=== PATIENT | female | born 1990 | race African-American/Black ===

== ENCOUNTER → 2016-08-03 | Outpatient (CLI) | payer OTHER ==
[2016-08-03 11:37] LABS: ABSOLUTE EOSINOPHILS # (AUTO) 0.2 10^3/uL (0.0-0.6); ABSOLUTE LYMPHOCYTES (AUTO) 2.6 10^3/uL (0.5-4.7); ABSOLUTE MONOCYTES (AUTO) 0.3 10^3/uL (0.1-1.4); ABSOLUTE NEUT (AUTO) 2.2 10^3/uL (1.7-8.2); BASOPHILS % (AUTO) 0.7 % (0-2); EOSINOPHILS % (AUTO) 3.1 % (0-6); HEMOGLOBIN 12.5 g/dL (12.0-15.5); HGB HCT DIFFERENCE -0.5; LYMPHOCYTES % (AUTO) 48.7 % (13-45); MEAN CORPUSCULAR HEMOGLOBIN 27.4 pg (27.0-33.4); MEAN CORPUSCULAR HGB CONC 33.1 g/dL (32.0-36.0); MEAN CORPUSCULAR VOLUME 83 fl (80-97); MONOCYTES % (AUTO) 5.6 % (3-13); RED BLOOD COUNT 4.58 10^6/uL (3.72-5.28); RED CELL DISTRIBUTION WIDTH 13.2 % (11.5-14.0); SEGMENTED NEUTROPHILS % (AUTO) 41.9 % (42-78); WHITE BLOOD COUNT 5.3 10^3/uL (4.0-10.5)
[2016-08-03 12:03] LABS: ALANINE AMINOTRANSFERASE 20 U/L (9-52); ALBUMIN 3.8 g/dL (3.5-5.0); ALKALINE PHOSPHATASE 41 U/L (38-126); ANION GAP 14 (5-19); ASPARTATE AMINO TRANSFERASE 16 U/L (14-36); BILIRUBIN,DIRECT 0.2 mg/dL (0.0-0.4); BILIRUBIN,TOTAL 0.3 mg/dL (0.2-1.3); BLOOD UREA NITROGEN 9 mg/dL (7-20); CALCIUM 9.1 mg/dL (8.4-10.2); CARBON DIOXIDE 23 mmol/L (22-30); CHLORIDE 109 mmol/L (98-107); CHOLESTEROL 150.13 mg/dL (0-200); CREATININE RESULT 0.77 mg/dL (0.52-1.25); Direct HDL 42 mg/dL (>40); GLUCOSE 94 mg/dL (75-110); POTASSIUM 4.5 mmol/L (3.6-5.0); SODIUM 146.2 mmol/L (137-145); TOTAL PROTEIN 6.7 g/dL (6.3-8.2); TRIGLYCERIDES 66 mg/dL (<150)
[2016-08-03 12:13] LABS: DIRECT LDL 83 mg/dL (<100)
== END ==
LOC: LAB 10:25
DX: Z00.00 Encounter for general adult medical examination without abnormal findings (principal)
CPT/HCPCS: 36415; 80053; 80061; 83036; 84443; 85025

== ENCOUNTER 2016-08-05 15:53 | Emergency (ER) | payer SELFPAY ==
--- NOTE | 2016-08-05 17:13 | ER Document Report ---
ED Oral Problem - General Chief Complaint: Sore Throat Stated Complaint: THROAT PAIN Notes: Patient has been having problems with laryngitis over the last 6 months. She's been seen by her local provider and then by ENT who performed a laryngoscopic exam of the patient's larynx and upper airway and found no abnormalities. The patient was placed on antacids. She has been treated recently with Nexium and a course of steroids and her voice improved, but after a few days, the hoarse voice returned. She had a CT scan of her neck done today and it was normal. Her primary care provider at [facility] is trying to arrange for her to get into see a local tower supervisor to look further into the cause of her recurrent laryngitis over the 6 months. Patient's employment requires her to talk on the telephone almost all the time while at work. TRAVEL OUTSIDE OF THE [place] IN LAST 30 DAYS: No - Related Data Allergies/Adverse Reactions: acetaminophen [From Tylenol PM] Allergy (Severe, Verified 08/05/16 15:58) dextromethorphan HBr [From NyQuil] Allergy (Severe, Verified 08/05/16 15:58) diphenhydramine HCl [From Benadryl] Allergy (Severe, Verified 08/05/16 15:58) doxylamine [From NyQuil] Allergy (Severe, Verified 08/05/16 15:58) pseudoephedrine HCl [From NyQuil] Allergy (Severe, Verified 08/05/16 15:58) Sulfa (Sulfonamide Antibiotics) Allergy (Mild, Verified 08/05/16 15:58) Past Medical History - Social History Smoking Status: Never Smoker Family History: Reviewed & Not Pertinent, Arthritis, Hyperlipidemia, Hypertension, Malignancy Patient has suicidal ideation: No Patient has homicidal ideation: No Neurological Medical History: Reports: Hx Migraine Renal/ Medical History: Reports: Hx Ovarian Cysts GI Medical History: Reports: Hx Gastroesophageal Reflux Disease Psychiatric Medical History: Reports: Hx Anxiety, Hx Depression - Immunizations Hx Diphtheria, Pertussis, Tetanus Vaccination: Yes Review of Systems - Review of Systems Constitutional: denies: Fever Cardiovascular: denies: Chest pain Respiratory: See HPI. denies: Cough, Short of breath, Wheezing Gastrointestinal: denies: Abdominal pain, Diarrhea, Nausea, Vomiting Physical Exam - Vital signs Vitals: Temp Pulse Resp BP Pulse Ox 98.9 F 91 14 110/73 99 04/07/17 15:59 08/05/16 15:59 08/05/16 15:59 08/05/16 15:59 08/05/16 15:59 Interpretation: Normal - Notes Notes: PHYSICAL EXAMINATION: GENERAL: Well-appearing, in no acute distress. Patient has no difficulty swallowing. She speaks in a squeaky high-pitched somewhat hoarse sounding voice. I believe this sounds like pseudo-laryngitis to me. HEAD: Atraumatic, normocephalic. ENT: oropharynx clear without exudates. Moist mucous membranes. NECK: Normal range of motion, supple. Good airflow without any difficulty. LUNGS: Breath sounds clear and equal bilaterally. HEART: Regular rate and rhythm without murmurs. ABDOMEN: Soft, nontender. No guarding or rebound. BACK: No tenderness throughout entire back. EXTREMITIES: Normal range of motion without pain. NEUROLOGICAL: Normal speech, normal gait. Normal sensory, motor, and reflex exams. Awake, alert, and oriented x3. Cranial nerves normal. PSYCH: Normal mood, normal affect. Course - Re-evaluation Re-evalutation: 08/05/16 21:19 Patient felt that the course of steroids helped her and give that treatment modality one more try with another Medrol Dosepak like she already took followed by 5 mg of prednisone daily for 7 days. - Vital Signs Vital signs: Temp Pulse Resp BP Pulse Ox 98.9 F 70 20 121/75 98 08/05/16 15:59 08/05/16 17:15 08/05/16 17:15 08/05/16 17:15 08/05/16 17:15 Discharge - Discharge Clinical Impression: Laryngitis Condition: Stable Disposition: HOME, SELF-CARE Additional Instructions: Laryngitis You have laryngitis. This is an inflammation of the vocal cords which leads to inability to speak normally. Any irritation to the airway can cause laryngitis. Causes include virus infection, smoke inhalation, allergy, or even trauma due to excessive talking or shouting. Rest your voice. Any vibration of the vocal cords increases and prolongs the swelling. Humidity is helpful, especially cool mist. Avoid dust, chemical fumes, and smoke. Avoid decongestants and antihistamines -- these will make you worse. You can expect to recover completely in a few days. See the physician if new symptoms develop, such as high fever, productive cough, shortness of breath, or if you do not improve within a few days. Continue taking your antacid medications. STEROID MEDICATION: You have been given a medicine of the cortisone/steroid class. This medication is used to control inflammation or allergy. It is usually only given for a short period of time, until the acute process subsides. There are usually no side effects from short-term use of cortisone-like medications. Some persons feel an increased sense of well-being and are not sleepy at bedtime. Long-term use of cortisone medications is best avoided, unless required for a severe condition. If your condition does not remit, or relapses after the course of corticosteroid medication, you should consult your physician. FOLLOW-UP CARE: If you have been referred to a physician for follow-up care, call the physician s office for an appointment as you were instructed or within the next two days. If you experience worsening or a significant change in your symptoms, notify the physician immediately or return to the Emergency Department at any time for re-evaluation. Follow-up with a local tower supervisor as planned. Prescriptions: Methylprednisolone [Medrol Dosepack (4 mg/Tab) 21 Tab/Dosepak] 4 mg PO ASDIR PRN #21 tab.[id number] PRN Reason: Prednisone 5 mg PO DAILY #7 tablet Forms: Return to Work Referrals: [facility] [Primary Care Provider] - Follow up as needed
[2016-08-05 17:15] VITALS: BP 121/75
== END 2016-08-05 17:14 | disposition home or self-care (01) ==
LOC: ER 15:53
DX: J04.0 Acute laryngitis (principal); Z88.6 Allergy status to analgesic agent; Z88.2 Allergy status to sulfonamides
CPT/HCPCS: 99282

== ENCOUNTER → 2016-08-05 | Outpatient (CLI) | payer OTHER | LOC: RAD 10:12 | DX: R49.0 Dysphonia (principal); J37.0 Chronic laryngitis; Z72.0 Tobacco use | CPT/HCPCS: 71250 ==

== ENCOUNTER 2016-08-21 19:04 | Emergency (ER) | payer OTHER ==
--- NOTE | 2016-08-21 21:20 | ER Document Report ---
ED Psych Disorder / Suicide - General Chief Complaint: Psych Problem Stated Complaint: PANIC ATTACK Mode of Arrival: Ambulatory Information source: Patient Notes: This is a 26-year-old female who presents to the ER for concern of panic attack and suicidal ideation. History is limited in that patient is currently under treatment for significant laryngitis and is unable to speak at this time. History is obtained as she answers questions by writing on a dry-erase board. She states that over the past 6 months she has been diagnosed with a recurrent laryngitis and that she is unable to speak. The severity seems to wax and wane and sometimes she is able to have a voice and at other times she cannot. She has been evaluated and treated by ENT, has had normal laryngoscopic exam and CT of neck, and is being treated with prednisone. She has two subspecialty appointments at [place] next month. She states that she's been told that this condition may be permanent. She states that this has triggered her anxiety and depression, and that she has been having increased frequency of panic attacks, during which she feels that she cannot breathe secondary to her laryngitis. She writes that she cannot go on living this way and that she feels suicidal. She does admit to a prior suicide attempt by overdose in 2015. She states that she decided to come to the ER today for help with these suicidal thoughts and with her panic attacks. She is at times tearful during the interview. TRAVEL OUTSIDE OF THE [place] IN LAST 30 DAYS: No - Related Data Allergies/Adverse Reactions: acetaminophen [From Tylenol PM] Allergy (Severe, Verified 08/21/16 19:37) dextromethorphan HBr [From NyQuil] Allergy (Severe, Verified 08/21/16 19:37) diphenhydramine HCl [From Benadryl] Allergy (Severe, Verified 08/21/16 19:37) doxylamine [From NyQuil] Allergy (Severe, Verified 08/21/16 19:37) pseudoephedrine HCl [From NyQuil] Allergy (Severe, Verified 08/21/16 19:37) Sulfa (Sulfonamide Antibiotics) Allergy (Mild, Verified 08/21/16 19:37) erythromycin base Allergy (Verified 08/21/16 19:37) Past Medical History - General Information source: Patient, [facility] Records - Social History Smoking Status: Never Smoker Frequency of alcohol use: None Drug Abuse: None Lives with: Spouse/Significant other Family History: Reviewed & Not Pertinent, Arthritis, Hyperlipidemia, Hypertension, Malignancy Patient has suicidal ideation: Yes Patient has homicidal ideation: Yes Neurological Medical History: Reports: Hx Migraine Renal/ Medical History: Reports: Hx Ovarian Cysts. Denies: Hx Peritoneal Dialysis GI Medical History: Reports: Hx Gastroesophageal Reflux Disease Psychiatric Medical History: Reports: Hx Anxiety, Hx Depression - Immunizations Hx Diphtheria, Pertussis, Tetanus Vaccination: Yes Review of Systems - Review of Systems Constitutional: No symptoms reported. denies: Chills, Fever EENT: See HPI Cardiovascular: No symptoms reported. denies: Chest pain Respiratory: No symptoms reported Gastrointestinal: No symptoms reported Genitourinary: No symptoms reported Musculoskeletal: No symptoms reported Hematologic/Lymphatic: No symptoms reported Neurological/Psychological: See HPI Physical Exam - Vital signs Vitals: Temp Pulse Resp BP Pulse Ox 99 F 106 H 22 H 124/78 100 08/21/16 19:38 08/21/16 19:38 08/21/16 19:38 08/21/16 19:38 08/21/16 19:38 - Notes Notes: PHYSICAL EXAMINATION: GENERAL: Well-appearing, well-nourished adult female. No distress. Writing on a dry-erase board. HEAD: Atraumatic, normocephalic. EYES: Pupils equal round and reactive to light, extraocular movements intact, sclera anicteric, conjunctiva are normal. ENT: nares patent, oropharynx clear without exudates. Moist mucous membranes. NECK: Normal range of motion, supple without lymphadenopathy LUNGS: Breath sounds clear to auscultation bilaterally and equal. No wheezes rales or rhonchi. HEART: Regular rate and rhythm without murmurs ABDOMEN: Soft, nontender, normoactive bowel sounds. No guarding, no rebound. EXTREMITIES: Normal range of motion, no pitting or edema. NEUROLOGICAL: Cranial nerves grossly intact. Pt will not speak as she says she has no voice. No gross focal motor or sensory deficits appreciated PSYCH: Sad mood, flat/depressed affect, with occasional tears. SKIN: Warm, Dry, normal turgor, no rashes or lesions noted. Course - Re-evaluation Re-evalutation: 08/21/16 23:20 Pt noted to swallow and tolerate po fluids without difficulty. Normal exam of posterior pharynx. These symptoms have been waxing and waning for several months. Most concerning today is her endorsement of ongoing and active suicidal ideations and her history of overdose in the past. Pt is unable to contract for safety and I feel that she is a potential danger to herself. Will complete IVC paperwork and await mental health evaluation in the morning. - Vital Signs Vital signs: Temp Pulse Resp BP Pulse Ox 99 F 106 H 22 H 124/78 100 08/21/16 19:38 08/21/16 19:38 08/21/16 19:38 08/21/16 19:38 08/21/16 19:38 - Laboratory Result Diagrams: 08/21/16 21:30 08/21/16 21:30 Laboratory results interpreted by me: 08/21/16 21:30 Sodium 146.6 H Glucose 65 L Salicylates < 1.0 L Acetaminophen < 10 L - EKG Interpretation by Me Additional EKG results interpreted by me: 08/21/16 22:22 EKG at 2047 and menstruation normal sinus rhythm with a rate of 73. There are no ST segment elevation or depressions. Intervals are normal. Normal axis. Discharge - Discharge Clinical Impression: Suicidal ideation, Laryngitis Depression Qualifiers: Depression Type: unspecified Qualified Code(s): F32.9 - Major depressive disorder, single episode, unspecified Condition: Stable Disposition: PSYCH HOSP/UNIT Instructions: Anxiety ([facility])
[2016-08-21 21:50] LABS: ABSOLUTE BASOPHILS # (AUTO) 0.1 10^3/uL (0.0-0.2); ABSOLUTE EOSINOPHILS # (AUTO) 0.1 10^3/uL (0.0-0.6); ABSOLUTE LYMPHOCYTES (AUTO) 3.7 10^3/uL (0.5-4.7); ABSOLUTE MONOCYTES (AUTO) 0.7 10^3/uL (0.1-1.4); ABSOLUTE NEUT (AUTO) 5.5 10^3/uL (1.7-8.2); BASOPHILS % (AUTO) 1.2 % (0-2); EOSINOPHILS % (AUTO) 0.9 % (0-6); HEMATOCRIT 39.9 % (36.0-47.0); HEMOGLOBIN 13.3 g/dL (12.0-15.5); LYMPHOCYTES % (AUTO) 36.4 % (13-45); MEAN CORPUSCULAR HEMOGLOBIN 27.5 pg (27.0-33.4); MEAN CORPUSCULAR HGB CONC 33.3 g/dL (32.0-36.0); MEAN CORPUSCULAR VOLUME 83 fl (80-97); MONOCYTES % (AUTO) 7.1 % (3-13); RED BLOOD COUNT 4.82 10^6/uL (3.72-5.28); RED CELL DISTRIBUTION WIDTH 13.9 % (11.5-14.0); SEGMENTED NEUTROPHILS % (AUTO) 54.4 % (42-78); WHITE BLOOD COUNT 10.1 10^3/uL (4.0-10.5)
[2016-08-21 22:02] LABS: ALANINE AMINOTRANSFERASE 27 U/L (9-52); ALBUMIN 4.5 g/dL (3.5-5.0); ALKALINE PHOSPHATASE 41 U/L (38-126); ANION GAP 15 (5-19); ASPARTATE AMINO TRANSFERASE 25 U/L (14-36); BILIRUBIN,DIRECT 0.1 mg/dL (0.0-0.4); BILIRUBIN,TOTAL 0.6 mg/dL (0.2-1.3); BLOOD UREA NITROGEN 12 mg/dL (7-20); CALCIUM 9.4 mg/dL (8.4-10.2); CARBON DIOXIDE 25 mmol/L (22-30); CHLORIDE 107 mmol/L (98-107); CREATININE RESULT 0.82 mg/dL (0.52-1.25); GLUCOSE 65 mg/dL (75-110); SODIUM 146.6 mmol/L (137-145); TOTAL PROTEIN 7.4 g/dL (6.3-8.2)
[2016-08-21 22:03] LABS: ALCOHOL < 10 mg/dL (NONE DETECTED)
[2016-08-21] MEDS ORDERED: MAG HYDROX/AL HYDROX/SIMETH SUSP 30 ML UDCUP PO ONE (22:43)
[2016-08-21] MEDS ORDERED: METOCLOPRAMIDE HCL ORAL SOLN 10 MG/10 ML UDCUP PO ONE (22:43)
[2016-08-21] MEDS ORDERED: LIDOCAINE 2% VISCOUS SOLN 20 ML UDCUP PO ONE (22:43)
[2016-08-21] MEDS ORDERED: FAMOTIDINE 20 MG TABLET PO ONE (22:57)
[2016-08-22 00:38] LABS: URINE BARBITURATES SCREEN NEGATIVE; URINE METHADONE SCREEN NEGATIVE; URINE OPIATES LOW NEGATIVE; URINE PHENCYCLIDINE SCREEN NEGATIVE
[2016-08-22 00:41] LABS: APPEARANCE,URINE SLIGHTLY-CLOUDY; BILIRUBIN,URINE NEGATIVE (NEGATIVE); GLUCOSE, URINE NEGATIVE (NEGATIVE); KETONES,URINE NEGATIVE (NEGATIVE); LEUKOCYTE ESTERASE,URINE TRACE (NEGATIVE); NITRITE,URINE NEGATIVE (NEGATIVE); PROTEIN,URINE NEGATIVE (NEGATIVE); URINE SPECIFIC GRAVITY 1.015; UROBILINOGEN,URINE NEGATIVE mg/dL (<2.0)
[2016-08-22] MEDS ORDERED: TRAZODONE HCL 50 MG TABLET PO SCH (02:00)
[2016-08-22] MEDS ORDERED: TRAZODONE HCL 50 MG TABLET PO ONE (02:00)
--- NOTE | 2016-08-22 10:39 | EKG REPORT ---
SEVERITY:- NORMAL ECG - SINUS RHYTHM : Confirmed by: Ann Elmore 22-Aug-2016 10:38:38
[2016-08-22] MEDS ORDERED: FAMOTIDINE 20 MG TABLET PO ONE (10:59)
--- NOTE | 2016-08-22 13:29 | ER Document Report ---
ED Psych Disorder / Suicide - General Chief Complaint: Psych Problem Stated Complaint: PANIC ATTACK Mode of Arrival: Ambulatory Information source: Patient, Friend - boyfriend Cannot obtain history due to: Other - pt reportedly has chronic laryngitis and is unable to verbally communicate TRAVEL OUTSIDE OF THE [place] IN LAST 30 DAYS: No - HPI Patient complains to provider of: Bizarre behavior, Other - anxiety/panic attack Onset: Just prior to arrival Onset was: Sudden Suicide Risk Factors: Depressed, Other - Stress over reported medical condition Situational problems related to: Other - Patient reports she has been diagnosed with chronic and severe laryngitis preventing her from verbally communicating Normal mood: Yes Associated symptoms: Normal affect, Normal mood, Anxious, Depressed - Patient reports she is depressed of her chronic medical condition, Irritable - Patient reports she gets frustrated very easily. Similar symptoms previously: Yes - patient reports she attempted suicide one year ago. Recently seen / treated by doctor: Yes - patient reports she is followed by [facility] and wants to go ther Notes: Patient is a 26-year-old female who presented last night do to which she reported as a panic attack. Patient does not verbally communicate other than making grunting sounds and hand gestures. Patient actually communicates using a dry erase board and worker. Patient states she is unable to verbally communicate do to chronic laryngitis 6 months. Patient reportedly has specialists following her for this condition. Patient today states nothing specific happened to upset her last night just that she is frustrated over her current situation. She states she acted out and began breaking items in the home. Patient states she prompted her boyfriend to just break up with her via text message, and is now frustrated because she does not have access to her phone to know what he wrote back. Patient denies feeling suicidal, but reports she is upset and feels hopeless about her condition. Patient states her doctors tell her they will wait until [place] for further testing. Patient reports she is frustrated that she is unable to verbalize her opinions and needs. Patient provides verbal consent to contact her boyfriend. [facility]: Schedule patient for medication evaluation per her request for 1 week from today at 0830. KarenNaga : states he is not concerned for her safety in re : to harming self. He states there was an argument because she was frustrated over losing her voice. He states they do live together, but does not have a vehicle to pick her up. He states he will attempt to get a ride to pick her up. Boyfriend reports the patient does take her medications as prescribed. Patient is alert and oriented 4. Mood is irritable with congruent affect. Patient denies suicidal/homicidal ideations, intent, plan, means. Patient denies A/VH; delusions not noted. Thought processes were goal oriented towards discharging to follow-up with her own provider. Patient did not verbally communicate to assess for speech. Intellectual abilities were estimated within average range. Attention and focus were fair. Insight, judgment, impulse control were poor. Unspecified anxiety disorder per history Unspecified depressive disorder per history Patient is psychiatrically cleared and recommended for rescind IVC to discharge to her boyfriend. Patient reports she would like to follow-up with her psychiatric provider at [facility]. An appointment has been scheduled for her for August 29 at 0830. Patient no longer meets criteria for involuntary commitment as she denies suicidal and/or homicidal ideations. Per report it appears her chronic laryngitis is being followed by specialists at [place]. It is unclear if this information has been verified. I consulted with Dr. Faulkner in regards to the care and management of this patient. - Related Data Allergies/Adverse Reactions: acetaminophen [From Tylenol PM] Allergy (Severe, Verified 08/21/16 19:37) dextromethorphan HBr [From NyQuil] Allergy (Severe, Verified 08/21/16 19:37) diphenhydramine HCl [From Benadryl] Allergy (Severe, Verified 08/21/16 19:37) doxylamine [From NyQuil] Allergy (Severe, Verified 08/21/16 19:37) pseudoephedrine HCl [From NyQuil] Allergy (Severe, Verified 08/21/16 19:37) Sulfa (Sulfonamide Antibiotics) Allergy (Mild, Verified 08/21/16 19:37) erythromycin base Allergy (Verified 08/21/16 19:37) Home Medications: Current Home Medications Omeprazole [Prilosec] 40 mg PO DAILY 08/22/16 [History] Trazodone HCl [Trazodone HCl] 50 mg PO QHS 08/22/16 [History] Vilazodone Hydrochloride [Viibryd] 20 mg PO DAILY 08/22/16 [History] Past Medical History - General Information source: Patient, Friend, [facility] Records - Social History Smoking Status: Unknown if Ever Smoked Chew tobacco use (# tins/day): No Frequency of alcohol use: None Drug Abuse: None Lives with: Spouse/Significant other Family History: Reviewed & Not Pertinent, Arthritis, Hyperlipidemia, Hypertension, Malignancy Patient has suicidal ideation: Yes Patient has homicidal ideation: Yes Neurological Medical History: Reports: Hx Migraine Renal/ Medical History: Reports: Hx Ovarian Cysts. Denies: Hx Peritoneal Dialysis GI Medical History: Reports: Hx Gastroesophageal Reflux Disease Psychiatric Medical History: Reports: Hx Anxiety, Hx Depression - Immunizations Hx Diphtheria, Pertussis, Tetanus Vaccination: Yes Physical Exam - Vital signs Vitals: Temp Pulse Resp BP Pulse Ox 99 F 106 H 22 H 124/78 100 08/21/16 19:38 08/21/16 19:38 08/21/16 19:38 08/21/16 19:38 08/21/16 19:38 Course - Vital Signs Vital signs: Temp Pulse Resp BP Pulse Ox 99 F 106 H 22 H 124/78 100 08/21/16 19:38 08/21/16 19:38 08/21/16 19:38 08/21/16 19:38 08/21/16 19:38 - Laboratory Result Diagrams: 08/21/16 21:30 08/21/16 21:30 Laboratory results interpreted by me: 08/21/16 08/21/16 21:30 23:35 Sodium 146.6 H Glucose 65 L Ur Leukocyte Esterase TRACE H Salicylates < 1.0 L Acetaminophen < 10 L Discharge - Discharge Clinical Impression: Suicidal ideation, Laryngitis Depression Qualifiers: Depression Type: unspecified Qualified Code(s): F32.9 - Major depressive disorder, single episode, unspecified Condition: Stable Disposition: HOME, SELF-CARE Instructions: Anxiety ([facility]) Additional Instructions: Depression Your evaluation reveals that you have mental depression. While symptoms may be vague, they often include disturbance of sleep, fatigue, loss of appetite , and general loss of interest in life. While depression may be a side effect of drugs, or a reaction to a major change in your life, many cases have no known cause. If depression is acute, and related to a major loss in your life, you can expect it to clear completely with time. If you have been depressed a long time , are prone to repeated bouts of depression or low mood, or have been thinking of suicide, get help. Depression can be treated with anti-depressant medication and counselling. Long-term depression will often take a few weeks to clear, even with appropriate medication. Follow-up care is important. Contact your physician, the hospital emergency center, crisis line, or your counsellor if you are losing control or having self-destructive thoughts. Panic Attack The cause of panic attacks is unknown. Symptoms can include chest pain, shortness of breath, palpitations, sweats, and a sense of smothering or impending doom. In time, the panic attacks can lead to generalized anxiety and phobias. Because the symptoms can mimic heart attack, pulmonary embolism, and other serious diseases, the physician has evaluated you for these conditions. There is no evidence of a serious problem. An acute panic attack usually goes away by itself without treatment. A severe attack can be treated with medicine to calm you. Long-term, antidepressant medicines may help prevent attacks. Counselling can also be very beneficial in dealing with panic attacks. Panic attacks are less likely if you are getting regular exercise, proper diet, and plenty of sleep. It's normal for panic attacks to cause many frightening symptoms. However, you should call or return if your symptoms change significantly or if you are worsening. Anxiety The physician feels that some of your health problems are being caused by anxiety. Anxiety affects your health in many ways. Anxiety alone can cause palpitations, sweats, chest pains, abdominal pains, shortness of breath, and headaches. It contributes to ulcer disease, high blood pressure, irritable bowel syndrome, and has been shown to cause flare-ups of many other diseases. Anxiety is not a simple disorder to treat. If the anxiety is due to recent life stresses, you may simply need time to "work through" the changes. If the anxiety is due to an underlying unhappiness with yourself or due to psychiatric disturbance, professional help will be needed. Your physician can refer you for further help if needed. Anti-anxiety medication is occasionally given if the stress is acute or if you are having trouble sleeping. Chronic or frequent use of these medications is not a good idea because the body becomes reliant on it, preventing you from dealing with life's normal stresses. He were recommended to follow up with her psychiatric provider at [facility]. An appointment has been scheduled for you for a medication evaluation August 29 at 0830. You have also been provided a list of resources to follow up within the community should she choose to do so, to include mobile crisis. Mobile crisis may assist you should you experience a panic attack again. They are available to you 24 hours a day 7 days a week via telephone and in person if they deem necessary. Please return to the ER if her symptoms worsen.
[2016-08-22 13:51] VITALS: BP 117/65
== END 2016-08-22 13:51 | disposition home or self-care (01) ==
LOC: ER 19:04
DX: R45.851 Suicidal ideations (principal); J37.0 Chronic laryngitis; F32.9 Major depressive disorder, single episode, unspecified; F41.0 Panic disorder [episodic paroxysmal anxiety]; F41.9 Anxiety disorder, unspecified
CPT/HCPCS: 93005; 99284; 36415; 80307 ×4; 85025; 80053; 81001; 93010; J3490

== ENCOUNTER 2016-08-23 17:17 | Emergency (ER) | payer OTHER ==
[2016-08-23] MEDS ORDERED: NORMAL SALINE 1000 ML 1,000 ML IV ONE (19:20)
--- NOTE | 2016-08-23 19:23 | ER Document Report ---
ED General - General Chief Complaint: Passed Out Prior to Arrival Stated Complaint: SYNCOPE EPISODE Mode of Arrival: Wheelchair Information source: Patient Notes: 26-year-old female who is mute presents with complaints of dehydration. Patient notes she's been working outside there is hot she felt like she passed out for a few minutes. Patient denies any fevers or chills denies any nausea or vomiting TRAVEL OUTSIDE OF THE [place] IN LAST 30 DAYS: No - HPI Onset: Just prior to arrival Onset/Duration: Sudden Quality of pain: Achy Severity: Mild Pain Level: 1 Associated symptoms: Weakness Exacerbated by: Denies Relieved by: Denies Similar symptoms previously: No Recently seen / treated by doctor: Yes - Related Data Allergies/Adverse Reactions: acetaminophen [From Tylenol PM] Allergy (Severe, Verified 08/23/16 19:06) dextromethorphan HBr [From NyQuil] Allergy (Severe, Verified 08/23/16 19:06) diphenhydramine HCl [From Benadryl] Allergy (Severe, Verified 08/23/16 19:06) doxylamine [From NyQuil] Allergy (Severe, Verified 08/23/16 19:06) pseudoephedrine HCl [From NyQuil] Allergy (Severe, Verified 08/23/16 19:06) Sulfa (Sulfonamide Antibiotics) Allergy (Mild, Verified 08/23/16 19:06) erythromycin base Allergy (Verified 08/23/16 19:06) Past Medical History - Social History Smoking Status: Never Smoker Cigarette use (# per day): No Chew tobacco use (# tins/day): No Smoking Education Provided: No Family History: Reviewed & Not Pertinent, Arthritis, Hyperlipidemia, Hypertension, Malignancy Patient has suicidal ideation: No Patient has homicidal ideation: No Neurological Medical History: Reports: Hx Migraine Renal/ Medical History: Reports: Hx Ovarian Cysts. Denies: Hx Peritoneal Dialysis GI Medical History: Reports: Hx Gastroesophageal Reflux Disease Psychiatric Medical History: Reports: Hx Anxiety, Hx Depression - Immunizations Hx Diphtheria, Pertussis, Tetanus Vaccination: Yes Review of Systems - Review of Systems Notes: REVIEW OF SYSTEMS: CONSTITUTIONAL : Denies fever, chills, or sweats. Denies recent illness. EENT: Admits to dry mouth CARDIOVASCULAR: Denies chest pain. Denies palpitations or racing or irregular heart beat. Denies ankle edema. RESPIRATORY: Denies cough, cold, or chest congestion. Denies shortness of breath, difficulty breathing, or wheezing. GASTROINTESTINAL: Denies abdominal pain or distention. Denies nausea, vomiting , or diarrhea. Denies blood in vomitus, stools, or per rectum. Denies black, tarry stools. Denies constipation. GENITOURINARY: Denies difficulty urinating, painful urination, burning, frequency, blood in urine, or discharge. FEMALE GENITOURINARY: Denies vaginal bleeding, heavy or abnormal periods, irregular periods. Denies vaginal discharge or odor. MUSCULOSKELETAL: Denies back or neck pain or stiffness. Denies joint pain or swelling. SKIN: Denies rash, lesions or sores. HEMATOLOGIC : Denies easy bruising or bleeding. LYMPHATIC: Denies swollen, enlarged glands. NEUROLOGICAL: Admits weakness PSYCHIATRIC: Denies anxiety or stress. Denies depression, suicidal ideation, or homicidal ideation. ALL OTHER SYSTEMS REVIEWED AND NEGATIVE. Dictation was performed using [employer] voice recognition software PHYSICAL EXAMINATION: GENERAL: Well-appearing, well-nourished and in no acute distress. HEAD: Atraumatic, normocephalic. EYES: Pupils equal round and reactive to light, extraocular movements intact, conjunctiva are normal. ENT: Tongue appears dry moist mucous membranes otherwise NECK: Normal range of motion, supple without lymphadenopathy LUNGS: Breath sounds clear to auscultation bilaterally and equal. No wheezes rales or rhonchi. HEART: Regular rate and rhythm without murmurs ABDOMEN: Soft, nontender, nondistended abdomen. No guarding, no rebound. No masses appreciated. Female : deferred Musculoskeletal: Normal range of motion, no pitting or edema. No cyanosis. NEUROLOGICAL: Baseline mentation PSYCH: Normal mood, normal affect. SKIN: Warm, Dry, normal turgor, no rashes or lesions noted. Physical Exam - Vital signs Vitals: Temp Pulse Resp BP Pulse Ox 98.6 F 91 18 108/77 99 08/23/16 17:28 08/23/16 17:28 08/23/16 17:28 08/23/16 17:28 08/23/16 17:28 Course - Re-evaluation Re-evalutation: 08/23/16 19:23 Patient overall looks well and be mildly dehydrated otherwise is in no distress. Patient is noted to have panic attacks and anxiety issues. 04/25/17 21:00 Lab work notes mild CPK elevation, patient notes significant improvement with fluids. I will discharge home at this time given that patient feels well there is no other life-threatening issues After performing a Medical Screening Examination, I estimate there is LOW risk for INTRACRANIAL HEMORRHAGE, ISCHEMIC CVA, MALIGNANT DYSRHYTHMIA, ACUTE CORONARY SYNDROME, MENINGITIS, PULMONARY EMBOLISM, or SEPSIS thus I consider the discharge disposition reasonable. I have reevaluated this patient multiple times and no significant life threatening changes are noted. The patient and I have discussed the diagnosis and risks, and we agree with discharging home with close follow-up with the understanding that symptoms and presentations can change. We also discussed returning to the Emergency Department immediately if new or worsening symptoms occur. We have discussed the symptoms which are most concerning (e.g., changing or worsening pain, weakness, vomiting, fever) that necessitate immediate return. - Vital Signs Vital signs: Temp Pulse Resp BP Pulse Ox 99.1 F 91 16 115/72 99 08/23/16 20:57 08/23/16 20:57 08/23/16 20:57 08/23/16 20:57 08/23/16 20:57 - Laboratory Result Diagrams: 08/23/16 19:50 08/23/16 19:50 Laboratory results interpreted by me: 08/23/16 08/23/16 19:50 19:50 Lymphocytes % 45.2 H Sodium 146.3 H Creatine Kinase 148 H Total Protein 8.6 H Discharge - Discharge Clinical Impression: Dehydration Syncope Qualifiers: Syncope type: unspecified Qualified Code(s): R55 - Syncope and collapse Condition: Stable Disposition: HOME, SELF-CARE Additional Instructions: Syncopal Episode Syncope (fainting or near-fainting) can occur from many different health problems. Or it can be a simple fainting spell requiring no treatment. It is safe for you to go home, but further evaluation will likely be necessary. Your work-up may include tests for internal bleeding, heart disease, medication problems, or near-strokes. Tests are not always required, however, depending on the nature of your problem. The warning signs of an impending faint include: dizziness, lightheadedness , nausea, hot flashes, tingling, and weakness. If this happens, lay down and put your feet up, then wait until all of these symptoms have passed before standing up again. If these episodes become recurrent, or if you develop chest pain, heart palpitations, mental confusion, blurred vision, or headache, then you should call the physician, or go to the emergency room. Follow up with your physician tomorrow for further care or return to the ED IMMEDIATELY if symptoms worsen or new concerns occur. If you cannot afford to follow up with your primary care physician a list of low cost clinics have been provided at the end of your discharge papers as well.
[2016-08-23 20:02] LABS: ABSOLUTE EOSINOPHILS # (AUTO) 0.1 10^3/uL (0.0-0.6); ABSOLUTE MONOCYTES (AUTO) 0.4 10^3/uL (0.1-1.4); ABSOLUTE NEUT (AUTO) 3.1 10^3/uL (1.7-8.2); BASOPHILS % (AUTO) 0.6 % (0-2); EOSINOPHILS % (AUTO) 1.7 % (0-6); HEMATOCRIT 42.2 % (36.0-47.0); HEMOGLOBIN 14.1 g/dL (12.0-15.5); HGB HCT DIFFERENCE 0.1; LYMPHOCYTES % (AUTO) 45.2 % (13-45); MEAN CORPUSCULAR HEMOGLOBIN 27.8 pg (27.0-33.4); MEAN CORPUSCULAR HGB CONC 33.4 g/dL (32.0-36.0); MEAN CORPUSCULAR VOLUME 83 fl (80-97); MONOCYTES % (AUTO) 5.8 % (3-13); RED BLOOD COUNT 5.08 10^6/uL (3.72-5.28); SEGMENTED NEUTROPHILS % (AUTO) 46.7 % (42-78); WHITE BLOOD COUNT 6.7 10^3/uL (4.0-10.5)
[2016-08-23 20:17] LABS: ALANINE AMINOTRANSFERASE 23 U/L (9-52); ALBUMIN 4.8 g/dL (3.5-5.0); ALKALINE PHOSPHATASE 45 U/L (38-126); ANION GAP 14 (5-19); ASPARTATE AMINO TRANSFERASE 29 U/L (14-36); BILIRUBIN,DIRECT 0.3 mg/dL (0.0-0.4); BILIRUBIN,TOTAL 0.9 mg/dL (0.2-1.3); BLOOD UREA NITROGEN 11 mg/dL (7-20); CALCIUM 9.5 mg/dL (8.4-10.2); CARBON DIOXIDE 26 mmol/L (22-30); CHLORIDE 106 mmol/L (98-107); CREATINE KINASE 148 U/L (30-135); CREATININE RESULT 0.78 mg/dL (0.52-1.25); GLUCOSE 77 mg/dL (75-110); LIPASE 47.7 U/L (23-300); POTASSIUM 4.5 mmol/L (3.6-5.0); SODIUM 146.3 mmol/L (137-145); TOTAL PROTEIN 8.6 g/dL (6.3-8.2)
[2016-08-23 20:58] VITALS: BP 115/72
== END 2016-08-23 21:00 | disposition home or self-care (01) ==
LOC: ER 17:17
DX: E86.0 Dehydration (principal); R55 Syncope and collapse; R53.1 Weakness; F41.0 Panic disorder [episodic paroxysmal anxiety]; F41.9 Anxiety disorder, unspecified; Z88.6 Allergy status to analgesic agent; Z88.2 Allergy status to sulfonamides; Z88.1 Allergy status to other antibiotic agents; Z88.8 Allergy status to other drugs, medicaments and biological substances
CPT/HCPCS: 99284; 36415; 82550; 83690; 85025; 80053; J7030

== ENCOUNTER 2017-06-23 18:58 | Emergency (ER) | payer OTHER ==
--- NOTE | 2017-06-23 19:34 | ER Document Report ---
HPI - HPI Patient complains to provider of: left labia sore Onset: Other - 2 days Quality of pain: Burning Pain Level: 3 Context: 27 yo female with left labia tender sore. Denies risk of std and no hx hsv. no pelvic or abd pain. No fever. Associated Symptoms: None Exacerbated by: Walking Relieved by: Denies - ROS ROS below otherwise negative: Yes Systems Reviewed and Negative: Yes All other systems reviewed and negative - REPRODUCTIVE Reproductive: DENIES: : Past Medical History - General Information source: Patient - Social History Smoking Status: Never Smoker Frequency of alcohol use: None Drug Abuse: None Lives with: Family Family History: Reviewed & Not Pertinent, Arthritis, Hyperlipidemia, Hypertension, Malignancy Neurological Medical History: Reports: Hx Migraine Renal/ Medical History: Reports: Hx Ovarian Cysts. Denies: Hx Peritoneal Dialysis GI Medical History: Reports: Hx Gastroesophageal Reflux Disease Psychiatric Medical History: Reports: Hx Anxiety, Hx Depression - Immunizations Hx Diphtheria, Pertussis, Tetanus Vaccination: Yes Vertical Provider Document - CONSTITUTIONAL Agree With Documented VS: Yes Exam Limitations: No Limitations General Appearance: No Apparent Distress - INFECTION CONTROL TRAVEL OUTSIDE OF THE [place] IN LAST 30 DAYS: No - GI/ABDOMEN Gastrointestinal: Abdomen Soft, Abdomen Non-Tender - REPRODUCTIVE Notes: left inferior introitus with shallow irregulat 8mm ulcer. No pelivic lymph nodes. Discharge - Discharge Clinical Impression: Painful introitus ulceration Condition: Good Disposition: HOME, SELF-CARE Instructions: Antibiotic Ointment Protection ([facility]), Ulcer ([facility]) Additional Instructions: Call me at [phone] on June 28 for your viral culture results after 7 am Sitz bath Topical lidocaine to numb the area Bacitracin Return to the emergency room if worse Referrals: RHONDA STONER MD [Primary Care Provider] - Follow up as needed
[2017-06-23 19:58] VITALS: BP 108/70
[2017-06-23] MEDS ORDERED: LIDOCAINE 4%/TETRACAINE 0.5%/EPI 0.18% 5 ML TOPICAL SOLN TOP ONE (20:42)
== END 2017-06-23 21:07 | disposition home or self-care (01) ==
LOC: ER 18:58
DX: N76.5 Ulceration of vagina (principal)
CPT/HCPCS: 99282; 87250; J3490

== ENCOUNTER 2018-03-13 23:57 | Emergency (ER) | payer SELFPAY ==
[2018-03-14] MEDS ORDERED: KETOROLAC TROMETHAMINE 60 MG/2 ML SDV IM ONE (00:43)
--- NOTE | 2018-03-14 00:48 | ER Document Report ---
ED General - General Chief Complaint: Headache Stated Complaint: HEADACHE Time Seen by Provider: 03/14/18 00:29 TRAVEL OUTSIDE OF THE [place] IN LAST 30 DAYS: No - HPI Patient complains to provider of: Severe migraine Notes: 28-year-old female history of migraines presents to the emergency department for severe headache did not respond to her Imitrex injection. Per patient when she has migraines Imitrex typically resolve symptoms within a couple of minutes. Her normal presentation is right-sided behind her eye with lacrimation , but she endorses this headache presents as left-sided, temporal that radiates down to her jaw. She endorses photophobia, disorientation, blurred vision, nausea, hiccups. Of note patient's neurologist is Dr. Malone at [facility] and she was recently prescribed Keppra and cyclobenzaprine. - Related Data Allergies/Adverse Reactions: acetaminophen [From Tylenol PM] Allergy (Severe, Verified 06/23/17 19:06) dextromethorphan HBr [From NyQuil] Allergy (Severe, Verified 06/23/17 19:06) diphenhydramine HCl [From Benadryl] Allergy (Severe, Verified 06/23/17 19:06) doxylamine [From NyQuil] Allergy (Severe, Verified 06/23/17 19:06) pseudoephedrine HCl [From NyQuil] Allergy (Severe, Verified 06/23/17 19:06) Sulfa (Sulfonamide Antibiotics) Allergy (Mild, Verified 06/23/17 19:06) erythromycin base Allergy (Verified 06/23/17 19:06) Past Medical History - Social History Smoking Status: Current Every Day Smoker Cigarette use (# per day): Yes - 3 Family History: Reviewed & Not Pertinent, Arthritis, Hyperlipidemia, Hypertension, Malignancy Neurological Medical History: Reports: Hx Migraine Renal/ Medical History: Reports: Hx Ovarian Cysts. Denies: Hx Peritoneal Dialysis GI Medical History: Reports: Hx Gastroesophageal Reflux Disease Psychiatric Medical History: Reports: Hx Anxiety, Hx Depression - Immunizations Hx Diphtheria, Pertussis, Tetanus Vaccination: Yes Review of Systems - Review of Systems Constitutional: See HPI EENT: See HPI Cardiovascular: No symptoms reported Respiratory: No symptoms reported Gastrointestinal: No symptoms reported Genitourinary: No symptoms reported Female Genitourinary: No symptoms reported Musculoskeletal: No symptoms reported Skin: No symptoms reported Hematologic/Lymphatic: No symptoms reported Neurological/Psychological: See HPI Physical Exam - Vital signs Vitals: Temp Pulse Resp BP Pulse Ox 98.5 F 73 16 112/78 100 03/14/18 00:25 03/14/18 00:25 03/14/18 00:25 03/14/18 00:25 03/14/18 00:25 Interpretation: Normal - General General appearance: Appears well, Alert - HEENT Head: Normocephalic, Atraumatic Eyes: Normal Pupils: PERRL - Respiratory Respiratory status: No respiratory distress Chest status: Nontender Breath sounds: Normal Chest palpation: Normal - Cardiovascular Rhythm: Regular Heart sounds: Normal auscultation Murmur: No - Abdominal Inspection: Normal Distension: No distension Bowel sounds: Normal Tenderness: Nontender Organomegaly: No organomegaly - Back Back: Normal, Nontender - Extremities General upper extremity: Normal inspection, Nontender, Normal color, Normal ROM , Normal temperature General lower extremity: Normal inspection, Nontender, Normal color, Normal ROM , Normal temperature, Normal weight bearing. No: Rachel's sign - Neurological Neuro grossly intact: Yes Cognition: Normal Orientation: AAOx4 Dana Coma Scale Eye Opening: Spontaneous Kenny Coma Scale Verbal: Oriented Kenny Coma Scale Motor: Obeys Commands Dana Coma Scale Total: 15 Speech: Normal Motor strength normal: LUE, RUE, LLE, RLE Notes: No focal deficits on neuro exam. - Psychological Associated symptoms: Normal affect, Normal mood - Skin Skin Temperature: Warm Skin Moisture: Dry Skin Color: Normal Course - Re-evaluation Re-evalutation: 03/14/18 01:16 Patient received 30 mg Toradol IM. 30 minutes later patient reports feeling much better and symptoms have aborted. Patient states that she would like to go home. - Vital Signs Vital signs: Temp Pulse Resp BP Pulse Ox 98.5 F 73 16 112/78 100 03/14/18 00:25 03/14/18 00:25 03/14/18 00:25 03/14/18 00:25 03/14/18 00:25 Discharge - Discharge Clinical Impression: Migraine Qualifiers: Migraine type: without aura Status migrainosus presence: without status migrainosus Intractability: intractable Qualified Code(s): G43.019 - Migraine without aura, intractable, without status migrainosus Instructions: Migraine Headache ([facility]) Referrals: RHONDA STONER MD [HONORARY] - Follow up as needed
[2018-03-14 01:33] VITALS: BP 111/83
== END 2018-03-14 01:32 | disposition home or self-care (01) ==
LOC: ER 23:57
DX: G43.019 Migraine without aura, intractable, without status migrainosus (principal); H53.149 Visual discomfort, unspecified; R41.0 Disorientation, unspecified; H53.8 Other visual disturbances; R11.0 Nausea; R06.6 Hiccough; Z88.6 Allergy status to analgesic agent; Z88.8 Allergy status to other drugs, medicaments and biological substances; Z88.2 Allergy status to sulfonamides; Z88.1 Allergy status to other antibiotic agents; F17.210 Nicotine dependence, cigarettes, uncomplicated
CPT/HCPCS: 99284; 96372; J1885

== ENCOUNTER → 2018-03-21 | Outpatient (CLI) | payer OTHER ==
[2018-03-21 13:10] LABS: CHOLESTEROL 162.94 mg/dL (0-200); DIRECT LDL 122 mg/dL (<100); TRIGLYCERIDES 112 mg/dL (<150)
== END ==
LOC: CCC 10:19
DX: G43.909 Migraine, unspecified, not intractable, without status migrainosus (principal); Z79.899 Other long term (current) drug therapy
CPT/HCPCS: 36415; 80061; 80177; 84443

== ENCOUNTER → 2018-03-26 | Outpatient (CLI) | payer OTHER ==
[2018-03-26 13:29] LABS: ALANINE AMINOTRANSFERASE 18 U/L (9-52); ALBUMIN 5.4 g/dL (3.5-5.0); ALKALINE PHOSPHATASE 57 U/L (38-126); ANION GAP 19 (5-19); ASPARTATE AMINO TRANSFERASE 29 U/L (14-36); BILIRUBIN,DIRECT 0.2 mg/dL (0.0-0.4); BILIRUBIN,TOTAL 0.7 mg/dL (0.2-1.3); BLOOD UREA NITROGEN 12 mg/dL (7-20); CALCIUM 10.1 mg/dL (8.4-10.2); CARBON DIOXIDE 23 mmol/L (22-30); CHLORIDE 102 mmol/L (98-107); GLUCOSE 109 mg/dL (75-110); POTASSIUM 4.7 mmol/L (3.6-5.0); SODIUM 144.2 mmol/L (137-145); TOTAL PROTEIN 9.3 g/dL (6.3-8.2)
== END ==
LOC: CCC 11:53
DX: G43.909 Migraine, unspecified, not intractable, without status migrainosus (principal); Z79.899 Other long term (current) drug therapy
CPT/HCPCS: 36415; 80053

== ENCOUNTER → 2018-08-07 | Outpatient (CLI) | payer OTHER ==
[2018-08-07 13:39] LABS: HEMATOCRIT 43.1 % (36.0-47.0); HEMOGLOBIN 14.3 g/dL (12.0-15.5); MEAN CORPUSCULAR HEMOGLOBIN 27.3 pg (27.0-33.4); MEAN CORPUSCULAR HGB CONC 33.2 g/dL (32.0-36.0); MEAN CORPUSCULAR VOLUME 82 fl (80-97); PLATELET COUNT 277 10^3/uL (150-450); RED BLOOD COUNT 5.24 10^6/uL (3.72-5.28); WHITE BLOOD COUNT 4.9 10^3/uL (4.0-10.5)
[2018-08-07 13:51] LABS: CHOLESTEROL 173.86 mg/dL (0-200); TRIGLYCERIDES 98 mg/dL (<150)
[2018-08-07 14:02] LABS: DIRECT LDL 115 mg/dL (<100)
[2018-08-07 14:06] LABS: ABSOLUTE LYMPHOCYTES# (MANUAL) 3.5 10^3/uL (0.5-4.7); ABSOLUTE MONOCYTES # (MANUAL) 0.2 10^3/uL (0.1-1.4); BASOPHILS % (MANUAL) 0 % (0-2); EOSINOPHILS % (MANUAL) 3 % (0-6); MONOCYTES % (MANUAL) 4 % (3-13); SEGMENTED NEUTROPHILS % (MAN) 21 % (42-78); TOTAL CELLS COUNTED 100
[2018-08-07 14:07] LABS: LYMPHOCYTES % (MANUAL) 71 % (13-45); PLATELET COMMENT ADEQUATE; RBC MORPHOLOGY COMMENT NORMO-CYTIC/CHROMIC
[2018-08-08 10:05] LABS: PATH REVIEW PATHOLOGIST REVIEWED
== END ==
LOC: OD 12:33
PROVIDERS: ATTEND Nurse Practitioner
DX: F33.1 Major depressive disorder, recurrent, moderate (principal)
CPT/HCPCS: 36415; 80061; 83036; 84146; 84443; 85025

== ENCOUNTER → 2019-10-11 | Outpatient (CLI) | payer OTHER, BC ==
[2019-10-12 10:41] LABS: ABSOLUTE EOSINOPHILS # (AUTO) 0.1 10^3/uL (0.0-0.6); ABSOLUTE LYMPHOCYTES (AUTO) 2.3 10^3/uL (0.5-4.7); ABSOLUTE MONOCYTES (AUTO) 0.2 10^3/uL (0.1-1.4); ABSOLUTE NEUT (AUTO) 1.8 10^3/uL (1.7-8.2); BASOPHILS % (AUTO) 0.7 % (0-2); EOSINOPHILS % (AUTO) 2.6 % (0-6); HEMATOCRIT 42.9 % (36.0-47.0); HEMOGLOBIN 14.1 g/dL (12.0-15.5); LYMPHOCYTES % (AUTO) 51.6 % (13-45); MEAN CORPUSCULAR HEMOGLOBIN 27.6 pg (27.0-33.4); MEAN CORPUSCULAR HGB CONC 32.9 g/dL (32.0-36.0); MEAN CORPUSCULAR VOLUME 84 fl (80-97); MONOCYTES % (AUTO) 4.2 % (3-13); PLATELET COUNT 273 10^3/uL (150-450); RED BLOOD COUNT 5.12 10^6/uL (3.72-5.28); RED CELL DISTRIBUTION WIDTH 13.1 % (11.5-14.0); SEGMENTED NEUTROPHILS % (AUTO) 40.9 % (42-78); TOTAL CELLS COUNTED % (AUTO) 100 %; WHITE BLOOD COUNT 4.4 10^3/uL (4.0-10.5)
[2019-10-12 10:58] LABS: ALBUMIN 4.5 g/dL (3.5-5.0); ALKALINE PHOSPHATASE 47 U/L (38-126); ANION GAP 6 (5-19); ASPARTATE AMINO TRANSFERASE 18 U/L (14-36); BILIRUBIN,TOTAL 0.5 mg/dL (0.2-1.3); BLOOD UREA NITROGEN 9 mg/dL (7-20); CALCIUM 9.2 mg/dL (8.4-10.2); CARBON DIOXIDE 25 mmol/L (22-30); CHLORIDE 107 mmol/L (98-107); CHOLESTEROL 179.62 mg/dL (0-200); GLUCOSE 100 mg/dL (75-110); POTASSIUM 4.8 mmol/L (3.6-5.0); TOTAL PROTEIN 7.7 g/dL (6.3-8.2); TRIGLYCERIDES 63 mg/dL (<150)
[2019-10-12 11:09] LABS: DIRECT LDL 126 mg/dL (<100)
== END ==
LOC: OD 10:51
DX: K21.9 Gastro-esophageal reflux disease without esophagitis (principal)
CPT/HCPCS: 36415; 80053; 80061; 83036; 84443; 85025

== ENCOUNTER 2020-01-03 18:35 | Emergency (ER) | payer BC ==
--- NOTE | 2020-01-03 20:04 | ER Document Report ---
ED Medical Screen (RME) - General Chief Complaint: Nausea/Vomiting Stated Complaint: VOMITING/SHORTNESS OF BREATH/NAUSEA/ABDOMINAL PAIN Time Seen by Provider: 01/03/20 19:58 Primary Care Provider: [facility] [Primary Care Provider] - Follow up as needed Mode of Arrival: Ambulatory Information source: Patient Notes: 29-year-old female presented to ED for complaint of bowel impaction. She states she went to the urgent care and they sent her to the emergency room because she was having some nausea and vomiting with her constipation. She states she has been doing MiraLAX for the last few days.. She states she only gets nauseated when she feels like she is going to have another bowel movement. Patient is alert oriented respirations regular nonlabored speaking in full sentences. Her pulse is 95 her O2 sats 100% her temp is 99.1 her blood pressure is 97/81 and her respirations are 18 at this time. Get blood and urine and a acute abdomen and have seen by another provider. I have greeted and performed a rapid initial assessment of this patient. A comprehensive ED assessment and evaluation of the patient, analysis of test results and completion of medical decision making process will be conducted by an additional ED providers. TRAVEL OUTSIDE OF THE [place] IN LAST 30 DAYS: No - Related Data Allergies/Adverse Reactions: acetaminophen [From Tylenol PM] Allergy (Severe, Verified 06/23/17 19:06) dextromethorphan HBr [From NyQuil] Allergy (Severe, Verified 06/23/17 19:06) diphenhydramine HCl [From Benadryl] Allergy (Severe, Verified 06/23/17 19:06) doxylamine [From NyQuil] Allergy (Severe, Verified 06/23/17 19:06) pseudoephedrine HCl [From NyQuil] Allergy (Severe, Verified 06/23/17 19:06) Sulfa (Sulfonamide Antibiotics) Allergy (Mild, Verified 06/23/17 19:06) erythromycin base Allergy (Verified 06/23/17 19:06) Home Medications: Trazadone. buspirone Past Medical History - Social History Chew tobacco use (# tins/day): No Frequency of alcohol use: None Drug Abuse: None Neurological Medical History: Reports: Hx Migraine Renal/ Medical History: Reports: Hx Ovarian Cysts. Denies: Hx Peritoneal Dialysis GI Medical History: Reports: Hx Gastroesophageal Reflux Disease Psychiatric Medical History: Reports: Hx Anxiety, Hx Depression - Immunizations Hx Diphtheria, Pertussis, Tetanus Vaccination: Yes Doctor's Discharge - Discharge [facility]errals: [facility] [Primary Care Provider] - Follow up as needed
[2020-01-03 20:55] LABS: APPEARANCE,URINE SLIGHTLY-CLOUDY; BILIRUBIN,URINE NEGATIVE (NEGATIVE); COLOR,URINE YELLOW; GLUCOSE, URINE NEGATIVE (NEGATIVE); KETONES,URINE 20 mg/dL (NEGATIVE); LEUKOCYTE ESTERASE,URINE NEGATIVE (NEGATIVE); NITRITE,URINE NEGATIVE (NEGATIVE); PROTEIN,URINE NEGATIVE (NEGATIVE); URINE SPECIFIC GRAVITY 1.019; UROBILINOGEN,URINE NEGATIVE mg/dL (<2.0)
[2020-01-03 22:05] LABS: ABSOLUTE BASOPHILS # (AUTO) 0.1 10^3/uL (0.0-0.2); ABSOLUTE EOSINOPHILS # (AUTO) 0.1 10^3/uL (0.0-0.6); ABSOLUTE LYMPHOCYTES (AUTO) 2.7 10^3/uL (0.5-4.7); ABSOLUTE MONOCYTES (AUTO) 0.4 10^3/uL (0.1-1.4); ABSOLUTE NEUT (AUTO) 5.8 10^3/uL (1.7-8.2); BASOPHILS % (AUTO) 0.7 % (0-2); EOSINOPHILS % (AUTO) 1.5 % (0-6); HEMATOCRIT 45.5 % (36.0-47.0); LYMPHOCYTES % (AUTO) 29.5 % (13-45); MEAN CORPUSCULAR HEMOGLOBIN 27.1 pg (27.0-33.4); MEAN CORPUSCULAR HGB CONC 32.9 g/dL (32.0-36.0); MEAN CORPUSCULAR VOLUME 83 fl (80-97); MONOCYTES % (AUTO) 4.6 % (3-13); PLATELET COUNT 293 10^3/uL (150-450); RED BLOOD COUNT 5.52 10^6/uL (3.72-5.28); SEGMENTED NEUTROPHILS % (AUTO) 63.7 % (42-78); TOTAL CELLS COUNTED % (AUTO) 100 %; WHITE BLOOD COUNT 9.1 10^3/uL (4.0-10.5)
[2020-01-03 22:18] LABS: ALBUMIN 5.3 g/dL (3.5-5.0); ALKALINE PHOSPHATASE 61 U/L (38-126); ANION GAP 15 (5-19); ASPARTATE AMINO TRANSFERASE 22 U/L (14-36); BILIRUBIN,DIRECT 0.2 mg/dL (0.0-0.4); BILIRUBIN,TOTAL 0.9 mg/dL (0.2-1.3); BLOOD UREA NITROGEN 10 mg/dL (7-20); CALCIUM 9.9 mg/dL (8.4-10.2); CARBON DIOXIDE 26 mmol/L (22-30); CHLORIDE 100 mmol/L (98-107); GLUCOSE 75 mg/dL (75-110); POTASSIUM 4.1 mmol/L (3.6-5.0); TOTAL PROTEIN 9.1 g/dL (6.3-8.2)
--- NOTE | 2020-01-03 22:24 | RADIOLOGY REPORT (SQ) ---
EXAM DESCRIPTION: XR ABDOMEN SUPINE AND ERECT WITH CHEST (ABD ACUTE SERIES) COMPLETED DATE/TME: 01/03/2020 20:05 CLINICAL HISTORY: 29 years, Female, constipation, COMPARISON: None. NUMBER OF VIEWS: 4 TECHNIQUE: Frontal view the chest and 3 views of the abdomen LIMITATIONS: None. FINDINGS: Heart size normal. Lungs clear. No pneumothorax. No free air under the hemidiaphragms. The bowel gas pattern is nonspecific. Large amount of stool in the colon IMPRESSION: Negative chest. Abundant stool in the colon copyright 2010 [employer]- All Rights Reserved
[2020-01-03] MEDS ORDERED: MINERAL OIL 30 ML UDCUP PR ONE (22:44)
[2020-01-03] MEDS ORDERED: ONDANSETRON 4 MG TAB.RAPDIS PO ONE (22:46)
--- NOTE | 2020-01-03 22:48 | ER Document Report ---
ED GI/ - General Chief Complaint: Nausea/Vomiting Stated Complaint: VOMITING/SHORTNESS OF BREATH/NAUSEA/ABDOMINAL PAIN Time Seen by Provider: 01/03/20 19:58 Primary Care Provider: GIANNI BECKFORD MD [ACTIVE STAFF] - Follow up as needed Mode of Arrival: Ambulatory Notes: Patient is a 29-year-old female that comes emergency department for chief complaint of generalized abdominal pain, nausea, an episode of vomiting this morning, and inability to have a bowel movement. She states she has not had a normal bowel movement for 8 days, she had a small bowel movement earlier today after starting MiraLAX for the past 2 to 3 days. She states that she has had problems with constipation before but never this severe. She states she has been eating a lot of fiber with fruits and vegetables, she has been exercising, but this still has not helped. She denies fever, she has not had abdominal nay raiza, she denies any daily prescribed medications, she denies any other complaints. She states she was seen by urgent care and they sent her to the emergency department. TRAVEL OUTSIDE OF THE [place] IN LAST 30 DAYS: No - Related Data Allergies/Adverse Reactions: acetaminophen [From Tylenol PM] Allergy (Severe, Verified 06/23/17 19:06) dextromethorphan HBr [From NyQuil] Allergy (Severe, Verified 06/23/17 19:06) diphenhydramine HCl [From Benadryl] Allergy (Severe, Verified 06/23/17 19:06) doxylamine [From NyQuil] Allergy (Severe, Verified 06/23/17 19:06) pseudoephedrine HCl [From NyQuil] Allergy (Severe, Verified 06/23/17 19:06) Sulfa (Sulfonamide Antibiotics) Allergy (Mild, Verified 06/23/17 19:06) erythromycin base Allergy (Verified 06/23/17 19:06) Home Medications: Trazadone. buspirone Past Medical History - General Information source: Patient - Social History Smoking Status: Never Smoker Chew tobacco use (# tins/day): No Frequency of alcohol use: None Drug Abuse: None Lives with: Family Family History: Reviewed & Not Pertinent, Arthritis, Hyperlipidemia, Hypertension, Malignancy Neurological Medical History: Reports: Hx Migraine Renal/ Medical History: Reports: Hx Ovarian Cysts. Denies: Hx Peritoneal Dialysis GI Medical History: Reports: Hx Gastroesophageal Reflux Disease Psychiatric Medical History: Reports: Hx Anxiety, Hx Depression - Immunizations Hx Diphtheria, Pertussis, Tetanus Vaccination: Yes Review of Systems - Review of Systems Constitutional: No symptoms reported EENT: No symptoms reported Cardiovascular: No symptoms reported Respiratory: No symptoms reported Gastrointestinal: See HPI Genitourinary: No symptoms reported Female Genitourinary: No symptoms reported Musculoskeletal: No symptoms reported Skin: No symptoms reported Hematologic/Lymphatic: No symptoms reported Neurological/Psychological: No symptoms reported Physical Exam - Vital signs Vitals: Temp Pulse Resp BP Pulse Ox 99.1 F 98 18 97/81 L 100 01/03/20 19:55 01/03/20 19:55 01/03/20 19:55 01/03/20 19:55 01/03/20 19:55 - Notes Notes: GENERAL: Alert, interacts well. No acute distress. HEAD: Normocephalic, atraumatic. EYES: Pupils equal, round, and reactive to light. Extraocular movements intact. ENT: Oral mucosa moist, tongue midline. Oropharynx unremarkable. Airway patent. NECK: Full range of motion. Supple. Trachea midline. No lymphadenopathy. LUNGS: Clear to auscultation bilaterally, no wheezes, rales, or rhonchi. No respiratory distress. Non-tender chest wall. HEART: Regular rate and rhythm. No murmur ABDOMEN: Questionable mild distention of the abdomen, minimal generalized tenderness, nonspecific, no guarding. Bowel sounds quiet but present. GENITOURINARY: Deferred EXTREMITIES: Moves all 4 extremities spontaneously. No edema, normal radial and dorsalis pedis pulses bilaterally. No cyanosis. BACK: no cervical, thoracic, lumbar midline tenderness. No saddle anesthesia, normal distal neurovascular exam. Moves all extremities in full range of motion. NEUROLOGICAL: Alert and oriented x3. Normal speech. Cranial nerves II through XII grossly intact. Strength 5/5 in all extremities. PSYCH: Normal affect, normal mood. SKIN: Warm, dry, normal turgor. No rashes or lesions noted. Course - Re-evaluation Re-evalutation: CBC, chemistry unremarkable, hCG negative, urinalysis unremarkable. X-ray showing abundant stool in the colon mainly in the descending colon. I discussed with patient. She has already been on stool softeners, she is hoping for for symptom relief, she requests an enema. Enema was performed and patient had extremely large results with complete resolu tion of symptoms. Patient very grateful, discussed additional treatments at home, follow-up, return precautions. Patient states appreciation and agreement. Stable and well-appearing at time of discharge. - Vital Signs Vital signs: Temp Pulse Resp BP Pulse Ox 98.6 F 85 14 107/75 100 01/03/20 23:41 01/03/20 23:41 01/03/20 23:41 01/03/20 23:41 01/03/20 23:41 - Laboratory Result Diagrams: 01/03/20 21:42 01/03/20 21:42 Laboratory results interpreted by me: 01/03/20 01/03/20 01/03/20 20:30 21:42 21:42 RBC 5.52 H Total Protein 9.1 H Albumin 5.3 H Urine Ketones 20 H Discharge - Discharge Clinical Impression: Constipation Qualifiers: Constipation type: unspecified constipation type Qualified Code(s): K59.00 - Constipation, unspecified Abdominal pain Qualifiers: Abdominal location: generalized Qualified Code(s): R10.84 - Generalized abdominal pain Condition: Stable Disposition: HOME, SELF-CARE Additional Instructions: I recommend that you continue your MiraLAX stool softener for the next several days, continue fiber, continue to drink plenty of fluids. Because of the significant amount of constipation along with good habits already in place I recommend that you follow-up with the gastroenterology referral for additional management. Return if you worsen including severe worsening pain, vomiting, fever, or any other concerning or worsening symptoms. Forms: Return to Work Referrals: GIANNI BECKFORD MD [ACTIVE STAFF] - Follow up as needed
[2020-01-03 23:44] VITALS: BP 107/75
== END 2020-01-03 23:44 | disposition home or self-care (01) ==
LOC: ER 18:35
DX: K59.00 Constipation, unspecified (principal); R10.84 Generalized abdominal pain; R11.2 Nausea with vomiting, unspecified; F41.9 Anxiety disorder, unspecified; F32.9 Major depressive disorder, single episode, unspecified; Z88.8 Allergy status to other drugs, medicaments and biological substances; Z88.2 Allergy status to sulfonamides; Z88.1 Allergy status to other antibiotic agents
CPT/HCPCS: 99284; 36415; 83690; 84703; 85025; 81025; 80053; 81001; 74022; S0119; J3490

== ENCOUNTER 2020-05-01 13:11 | Emergency (ER) | payer BC ==
[2020-05-01] MEDS ORDERED: ONDANSETRON 4 MG TAB.RAPDIS PO ONE (14:32)
--- NOTE | 2020-05-01 14:36 | ER Document Report ---
ED Medical Screen (RME) - General Stated Complaint: ABDOMINAL PAIN, VOMITING, BLACK STOOL Time Seen by Provider: 05/01/20 14:28 Primary Care Provider: ALYSSA AVILES MD [Primary Care Provider] - Follow up as needed Notes: Patient presents complaining of lower abdominal pain for the past 3 days. Patient states that the pain gets so severe it causes her to pass out from the pain. Patient states she has had syncopal episodes x4 with 2 of those today. Patient reports dark black stools. Patient reports nausea vomiting x2 episodes. Patient denies any diarrhea or fever. Patient does have a history of IBS gastric ulcers and GERD. Patient does report taking Pepto-Bismol at home to help with her symptoms. I have greeted and performed a rapid initial assessment of this patient. A comprehensive ED assessment and evaluation of the patient, analysis of test results and completion of the medical decision making process will be conducted by additional ED providers. TRAVEL OUTSIDE OF THE [place] IN LAST 30 DAYS: No - Related Data Allergies/Adverse Reactions: acetaminophen [From Tylenol PM] Allergy (Severe, Verified 06/23/17 19:06) dextromethorphan HBr [From NyQuil] Allergy (Severe, Verified 06/23/17 19:06) diphenhydramine HCl [From Benadryl] Allergy (Severe, Verified 06/23/17 19:06) doxylamine [From NyQuil] Allergy (Severe, Verified 06/23/17 19:06) pseudoephedrine HCl [From NyQuil] Allergy (Severe, Verified 06/23/17 19:06) Sulfa (Sulfonamide Antibiotics) Allergy (Mild, Verified 06/23/17 19:06) erythromycin base Allergy (Verified 06/23/17 19:06) Past Medical History Neurological Medical History: Reports: Hx Migraine Renal/ Medical History: Reports: Hx Ovarian Cysts. Denies: Hx Peritoneal Dialysis GI Medical History: Reports: Hx Gastroesophageal Reflux Disease Psychiatric Medical History: Reports: Hx Anxiety, Hx Depression - Immunizations Hx Diphtheria, Pertussis, Tetanus Vaccination: Yes Physical Exam - Vital signs Vitals: Temp Pulse Resp BP Pulse Ox 98.4 F 72 20 123/80 93 05/01/20 13:17 05/01/20 13:17 05/01/20 13:17 05/01/20 13:17 05/01/20 13:17 - Abdominal Tenderness: Tender - Lower abdomen, exam limited as patient is in chair Course - Vital Signs Vital signs: Temp Pulse Resp BP Pulse Ox 98.4 F 72 20 123/80 93 05/01/20 13:17 05/01/20 13:17 05/01/20 13:17 05/01/20 13:17 05/01/20 13:17 Doctor's Discharge - Discharge Referrals: ALYSSA AVILES MD [Primary Care Provider] - Follow up as needed
[2020-05-01 15:32] LABS: APPEARANCE,URINE CLEAR; BILIRUBIN,URINE NEGATIVE (NEGATIVE); COLOR,URINE YELLOW; GLUCOSE, URINE NEGATIVE (NEGATIVE); KETONES,URINE NEGATIVE (NEGATIVE); LEUKOCYTE ESTERASE,URINE NEGATIVE (NEGATIVE); NITRITE,URINE NEGATIVE (NEGATIVE); PROTEIN,URINE NEGATIVE (NEGATIVE); URINE SPECIFIC GRAVITY 1.017
[2020-05-01] MEDS ORDERED: ONDANSETRON 4 MG TAB.RAPDIS ONE (17:06)
--- NOTE | 2020-05-01 17:34 | EKG REPORT ---
SEVERITY:- BORDERLINE ECG - SINUS ARRHYTHMIA, RATE 51-68 BORDERLINE T ABNORMALITIES, ANTERIOR LEADS : Confirmed by: Leland Flores MD 01-May-2020 17:33:17
[2020-05-01 18:14] LABS: ABSOLUTE BASOPHILS # (AUTO) 0.1 10^3/uL (0.0-0.2); ABSOLUTE EOSINOPHILS # (AUTO) 0.1 10^3/uL (0.0-0.6); ABSOLUTE LYMPHOCYTES (AUTO) 2.8 10^3/uL (0.5-4.7); ABSOLUTE MONOCYTES (AUTO) 0.4 10^3/uL (0.1-1.4); ABSOLUTE NEUT (AUTO) 3.1 10^3/uL (1.7-8.2); BASOPHILS % (AUTO) 0.8 % (0-2); EOSINOPHILS % (AUTO) 2.3 % (0-6); HEMATOCRIT 39.9 % (36.0-47.0); HEMOGLOBIN 13.2 g/dL (12.0-15.5); LYMPHOCYTES % (AUTO) 42.8 % (13-45); MEAN CORPUSCULAR HEMOGLOBIN 27.5 pg (27.0-33.4); MEAN CORPUSCULAR VOLUME 83 fl (80-97); MONOCYTES % (AUTO) 5.7 % (3-13); PLATELET COUNT 251 10^3/uL (150-450); RED BLOOD COUNT 4.79 10^6/uL (3.72-5.28); RED CELL DISTRIBUTION WIDTH 13.4 % (11.5-14.0); SEGMENTED NEUTROPHILS % (AUTO) 48.4 % (42-78); TOTAL CELLS COUNTED % (AUTO) 100 %; WHITE BLOOD COUNT 6.4 10^3/uL (4.0-10.5)
[2020-05-01 18:38] LABS: ALBUMIN 4.4 g/dL (3.5-5.0); ALKALINE PHOSPHATASE 48 U/L (38-126); ANION GAP 9 (5-19); ASPARTATE AMINO TRANSFERASE 25 U/L (14-36); BILIRUBIN,DIRECT 0.1 mg/dL (0.0-0.4); BILIRUBIN,TOTAL 0.5 mg/dL (0.2-1.3); BLOOD UREA NITROGEN 5 mg/dL (7-20); CALCIUM 9.1 mg/dL (8.4-10.2); CARBON DIOXIDE 25 mmol/L (22-30); CHLORIDE 105 mmol/L (98-107); GLUCOSE 77 mg/dL (75-110); POTASSIUM 4.4 mmol/L (3.6-5.0); TOTAL PROTEIN 7.7 g/dL (6.3-8.2)
[2020-05-01] MEDS ORDERED: ONDANSETRON ODT 4 MG TAB (6 TAB/ER DISP) PO PRN (19:30)
--- NOTE | 2020-05-01 19:31 | ER Document Report ---
ED General - General Chief Complaint: Nausea/Vomiting Stated Complaint: ABDOMINAL PAIN, VOMITING, BLACK STOOL Time Seen by Provider: 05/01/20 14:28 Primary Care Provider: ALYSSA AVILES MD [Primary Care Provider] - Follow up as needed TRAVEL OUTSIDE OF THE [place] IN LAST 30 DAYS: No - HPI Notes: Patient is a 30-year-old female presents emergency department for evaluation of abdominal pain, vomiting, and passing out. She has had significant abdominal pain for the last week. She has a history of similar abdominal pain, was diagnosed with acid reflux. She had been on Nexium in the past, but it seemed to resolve so she was taken off of it. Over the last week she has had burning and sharp periumbilical/epigastric abdominal pain. It seems to be worsened by eating. As a result she was not eating much. She has had 3 episodes of emesis in the last 24 hours. She frankly did not look at them, because she has a syncopal episode every time she vomits. She states that this is not a new phenomenon for her. She was primarily concerned because she had a black bowel movement today. It was formed. She did take Pepto-Bismol 48 hours ago for her symptoms. - Related Data Allergies/Adverse Reactions: acetaminophen [From Tylenol PM] Allergy (Severe, Verified 06/23/17 19:06) dextromethorphan HBr [From NyQuil] Allergy (Severe, Verified 06/23/17 19:06) diphenhydramine HCl [From Benadryl] Allergy (Severe, Verified 06/23/17 19:06) doxylamine [From NyQuil] Allergy (Severe, Verified 06/23/17 19:06) pseudoephedrine HCl [From NyQuil] Allergy (Severe, Verified 06/23/17 19:06) Sulfa (Sulfonamide Antibiotics) Allergy (Mild, Verified 06/23/17 19:06) erythromycin base Allergy (Verified 06/23/17 19:06) Past Medical History - General Information source: Patient - Social History Smoking Status: Former Smoker Family History: Reviewed & Not Pertinent, Arthritis, Hyperlipidemia, Hypertens ion, Malignancy Patient has homicidal ideation: No Neurological Medical History: Reports: Hx Migraine Renal/ Medical History: Reports: Hx Ovarian Cysts. Denies: Hx Peritoneal Dialysis GI Medical History: Reports: Hx Gastroesophageal Reflux Disease Psychiatric Medical History: Reports: Hx Anxiety, Hx Depression - Immunizations Hx Diphtheria, Pertussis, Tetanus Vaccination: Yes Review of Systems - Review of Systems Constitutional: No symptoms reported EENT: No symptoms reported Cardiovascular: See HPI Respiratory: No symptoms reported Gastrointestinal: See HPI Genitourinary: No symptoms reported Musculoskeletal: No symptoms reported Skin: No symptoms reported Neurological/Psychological: No symptoms reported Physical Exam - Vital signs Vitals: Temp Pulse Resp BP Pulse Ox 98.4 F 72 20 123/80 93 05/01/20 13:17 05/01/20 13:17 05/01/20 13:17 05/01/20 13:17 05/01/20 13:17 - Notes Notes: Vital signs reviewed, please refer to chart. Head is normocephalic, atraumatic. Pupils equal round, reactive to light. Neck is supple without meningismus. Heart is regular rate and rhythm. Lungs are clear to auscultation bilaterally. Abdomen is soft, mildly tender in the epigastrium and periumbilical regions without rebound or guarding, normoactive bowel sounds throughout. Extremities without cyanosis, clubbing. Posterior calves are nontender. Peripheral pulses are equal. Skin is warm and dry. Patient is awake, alert, neurological exam is nonfocal. Course - Re-evaluation Re-evalutation: 05/01/20 19:28 Patient presents to the emergency department for evaluation. She was initially seen through triage. She had multiple laboratory investigations and EKG ordered. In regards to her black stool, this is secondary to the Pepto-Bismol. It was formed, not consistent with melena. Her abdominal exam is nonsurgical. Her laboratory investigations show absolutely no abnormalities. Unfortunately her syncope is likely vasovagal. She is told to take precautions to avoid any sort of injury and she voiced understanding. Otherwise, I will restart the patient on an H2 cooper and send her home with some nausea medication. She is amenable to this plan. She is already seen GI in the past, plans to follow-up with them again. She is told if she has an increase in pain, hematemesis, coffee-ground emesis, quintin melena, or any other new or concerning symptoms of any sort, she is to return immediately to the emergency department for evaluation. - Vital Signs Vital signs: Temp Pulse Resp BP Pulse Ox 98.4 F 72 20 123/80 93 05/01/20 13:17 05/01/20 13:17 05/01/20 13:17 05/01/20 13:17 05/01/20 13:17 - Laboratory Results Result Diagrams: 05/01/20 17:28 05/01/20 17:28 Laboratory Results Interpreted: 05/01/20 05/01/20 15:02 17:28 BUN 5 L Urine Urobilinogen 2.0 H Critical Laboratory Results Reviewed: No Critical Results - Radiology Results Critical Radiology Results Reviewed: No Critical Results - EKG Interpretation by Me Additional EKG results interpreted by me: 05/01/20 19:29 Sinus arrhythmia with a rate of 59 bpm. Normal axis and intervals. Nonspecific ST changes, but no acute ST elevations concerning for infarction. No studies available for comparison. Discharge - Discharge Clinical Impression: Vasovagal syncope, Nausea and vomiting GERD (gastroesophageal reflux disease) Qualifiers: Esophagitis bleeding: without hemorrhage Gastritis Qualifiers: Gastritis type: unspecified gastritis Chronicity: acute Gastritis bleeding: without bleeding Qualified Code(s): K29.00 - Acute gastritis without bleeding Condition: Stable Disposition: HOME, SELF-CARE Instructions: Antinausea Medication ([facility]), Vomiting ([facility]), Gastritis ([facility]), Reflux Disease (GERD) ([facility]) Additional Instructions: Your findings today are most consistent with vasovagal syncope and gastritis. You do have a history of GERD. There is no evidence of any bleeding ulcers. Please avoid spicy and greasy foods, avoid acidic foods. Avoid caffeine, nicotine, alcohol. Take [id number] Pepcid as discussed for symptoms. Zofran as needed for severe nausea. Take small, frequent sips of fluids. Follow-up with primary care and gastroenterology as discussed. Return to the emergency department with worsening or new concerning symptoms of any sort. Referrals: ALYSSA AVILES MD [Primary Care Provider] - Follow up as needed
[2020-05-01 20:14] VITALS: BP 111/80
== END 2020-05-01 20:14 | disposition home or self-care (01) ==
LOC: ER 13:11
DX: K29.00 Acute gastritis without bleeding (principal); K21.9 Gastro-esophageal reflux disease without esophagitis; R55 Syncope and collapse; R11.2 Nausea with vomiting, unspecified; R19.5 Other fecal abnormalities; R10.9 Unspecified abdominal pain; Z88.6 Allergy status to analgesic agent; Z88.2 Allergy status to sulfonamides
CPT/HCPCS: 93005; 99284; 36415; 83690; 84703; 85025; 80053; 81001; 93010; S0119

== ENCOUNTER → 2020-05-11 | Outpatient (CLI) | payer BC ==
[2020-05-11 11:03] LABS: ALBUMIN 4.1 g/dL (3.5-5.0); ALKALINE PHOSPHATASE 42 U/L (38-126); ANION GAP 8 (5-19); ASPARTATE AMINO TRANSFERASE 22 U/L (14-36); BILIRUBIN,DIRECT 0.2 mg/dL (0.0-0.4); BILIRUBIN,TOTAL 0.3 mg/dL (0.2-1.3); BLOOD UREA NITROGEN 8 mg/dL (7-20); CALCIUM 8.8 mg/dL (8.4-10.2); CARBON DIOXIDE 23 mmol/L (22-30); CHLORIDE 110 mmol/L (98-107); GLUCOSE 94 mg/dL (75-110); POTASSIUM 4.6 mmol/L (3.6-5.0)
== END ==
LOC: OD 09:28
PROVIDERS: ATTEND Nurse Practitioner Family
DX: F33.1 Major depressive disorder, recurrent, moderate (principal)
CPT/HCPCS: 36415; 80053; 82306; 84443